=== PATIENT | male | born 1970 | race Caucasian/White ===

== ENCOUNTER → 2018-03-05 | Outpatient (CLI) | payer BC ==
[2018-03-05 10:56] LABS: Basophils # (A) 0.1 k/uL (0-0.2); Basophils % (A) 1 %; Eosinophils # (A) 0.4 k/uL (0-0.7); Eosinophils % (A) 4 %; HCT 42.4 % (39.0-53.0); HGB 14.9 gm/dL (13.0-17.5); Lymphocytes # (A) 2.2 k/uL (1.0-4.8); Lymphocytes % (A) 23 %; MCH 32.5 pg (25.0-35.0); MCHC 35.1 g/dL (31.0-37.0); MCV 92.7 fL (80.0-100.0); Mean Platelet Volume 7.5; Monocytes # (A) 0.4 k/uL (0-1.0); Monocytes % (A) 4 %; Neutrophils # (A) 6.7 k/uL (1.3-7.7); Neutrophils % (A) 68 %; Platelet Count 258 k/uL (150-450); RBC 4.58 m/uL (4.30-5.90); WBC 9.8 k/uL (3.8-10.6)
[2018-03-05 11:19] LABS: ALT 18 U/L (21-72); AST 21 U/L (17-59); Cholesterol 265 mg/dL (<200); Triglycerides 308 mg/dL (<150)
== END | disposition home or self-care (01) ==
LOC: LABWHC1 10:28
PROVIDERS: ATTEND Physician Assistant Medical
DX: Q82.8 Other specified congenital malformations of skin (principal)
CPT/HCPCS: 36415; 82465; 84450; 84460; 84478; 85025

== ENCOUNTER → 2025-02-09 | Outpatient (CLI) | payer BC ==
[2025-02-10 02:36] LABS: Basophils # (A) 0.04 X 10*3/uL (0.00-0.10); Basophils % (A) 0.6 %; Eosinophils # (A) 0.16 X 10*3/uL (0.04-0.35); Eosinophils % (A) 2.4 %; HGB 14.1 g/dL (13.0-17.0); Lymphocytes % (A) 36.8 %; MCH 33.7 pg (27.0-32.0); MCHC 33.6 g/dL (32.0-37.0); MCV 100.2 FL (80.0-97.0); Mean Platelet Volume 11.4 FL (9.5-12.2); Monocytes # (A) 0.48 X 10*3/uL (0.20-1.00); Monocytes % (A) 7.1 %; NRBC Per 100 WBC 0 X 10*3/uL (0.00-0.01); Neutrophils # (A) 3.59 X 10*3/uL (1.80-7.70); Neutrophils % (A) 52.7 %; Platelet Count 252 X 10*3/uL (140-440); RBC 4.19 X 10*6/uL (4.40-5.60)
[2025-02-10 02:48] LABS: BUN/Creat Ratio 4.36 Ratio (12.00-20.00); Blood Urea Nitrogen 4.8 mg/dL (9.0-27.0); Calcium 8.8 mg/dL (8.7-10.3); Carbon Dioxide 24.7 mmol/L (21.6-31.8); Chloride 109 mmol/L (96-109); Glucose 72 mg/dL (70-110); Potassium 3.6 mmol/L (3.5-5.5); Sodium 146 mmol/L (135-145)
== END | disposition home or self-care (01) ==
LOC: LABPAT 15:52
PROVIDERS: ATTEND Urology
DX: Z01.812 Encounter for preprocedural laboratory examination (principal); N52.9 Male erectile dysfunction, unspecified
CPT/HCPCS: 80048; 85025; 87086

== ENCOUNTER 2025-02-16 06:27 | Day surgery (SDC) | payer BC ==
--- NOTE | 2025-02-15 22:00 | P.GSHP ---
History of Present Illness H&P Date: 02/15/25 Chief Complaint: Erectile dysfunction The patient is a 54-year-old white male with a several year history of erectile dysfunction. He has failed treatment with Cialis, Viagra, vacuum erection device, and intracavernosal injection therapy. Remaining options include MUSE and an inflatable penile prosthesis. I have reviewed the pros and cons of each in detail with the patient and his . Patient has elected to undergo insertion of an inflatable penile prosthesis and comes for this reason. - Cardiovascular Cardiovascular: Reports high blood pressure - Genitourinary (Male) Genitourinary: Reports impotence Past Medical History Past Medical History: GERD/Reflux, Hyperlipidemia, Hypertension, Skin Disorder Additional Past Medical History / Comment(s): Darier's disease - rare, inherited skin disorder; fractured back several years ago, chronic back pain; E.D History of Any Multi-Drug Resistant Organisms: None Reported Past Surgical History: No Surgical Hx Reported Additional Past Anesthesia/Blood Transfusion Reaction / Comment(s): has never had surgery Smoking Status: Current every day smoker, Vaper Medications and Allergies Home Medications Medication Instructions Recorded Confirmed Type Acitretin [Soriatane] 25 mg PO HS 02/14/25 02/14/25 History Atorvastatin [Lipitor] 80 mg PO HS 02/14/25 02/14/25 History Cariprazine HCl [Vraylar] 6 mg PO HS 02/14/25 02/14/25 History Gabapentin 800 mg PO TID 02/14/25 02/14/25 History Losartan [Cozaar] 25 mg PO HS 02/14/25 02/14/25 History Omeprazole [PriLOSEC] 40 mg PO HS 02/14/25 02/14/25 History Venlafaxine HCl [Effexor XR] 150 mg PO HS 02/14/25 02/14/25 History oxyCODONE HCL/ACETAMINOPHEN 1 each PO HS PRN 02/14/25 02/14/25 History [Percocet 10-325 mg Tablet] Allergies Allergy/AdvReac Type Severity Reaction Status Date / Time No Known Allergies Allergy Verified 02/14/25 10:48 Surgical - Exam - General well developed, well nourished, no distress - Respiratory normal respiratory effort - Abdomen Abdomen: soft, non tender, no guarding, no rigid, no rebound - Genitourinary normal penis with no external lesions, testicles non-tender - Psychiatric oriented to time, oriented to person, oriented to place, speech is normal, memory intact Assessment and Plan (1) Male erectile dysfunction, unspecified Status: Acute Code(s): N52.9 - MALE ERECTILE DYSFUNCTION, UNSPECIFIED SNOMED Code(s): 979231576 Plan: The patient has elected to undergo insertion of an AMS 700 inflatable penile prosthesis. I have reviewed the procedure with him in detail. I discussed the prognosis and possible side-effects as well as the mechanics of the implant. I explained the possibility of a wound infection, particularly because of the presence of the foreign body in the penis. I discussed in detail the postoperative swelling and bruising which is anticipated. I explained that the implant does not give erectile qualities to the glans penis. The patient expressed an understanding with regard to the procedure, possible complications and outcome. Other risks include anesthesia, bleeding, erosion, and mechanical failure. He understands that infection and erosion would necessitate removal of the prosthesis.
[~2025-02-16 06:27] MED LIST: LIDOCAINE 1% (10MG/ML) FOR IV START INTRADERMA PRN; droPERidol 2.5 MG/ML VIAL IVP ONE
[2025-02-16 06:57] VITALS: RESP 16
[2025-02-16] MEDS: DEXAMETHASONE SOD PHOSPHATE 4 MG/ML 1 ML VIAL IV ONE (07:13)
[2025-02-16] MEDS: LACTATED RINGERS 1,000 ML IV SCH (07:13)
[2025-02-16] MEDS: ONDANSETRON 4 MG/2 ML VIAL IVP ONE (07:14)
[2025-02-16] MEDS: VANCOMYCIN 1,000 MG in SODIUM CHLORIDE 0.9% 250 ML IVPB PRN (07:16)
[2025-02-16] MEDS: LACTATED RINGERS 1,000 ML IV ONE (07:20)
[2025-02-16] MEDS ORDERED: NEOSTIGMINE 1 MG/ML 10 ML VIAL ONE (07:22)
[2025-02-16] MEDS ORDERED: LIDOCAINE 1% INJ 10MG/ML (20 ML MDV) ONE (07:22)
[2025-02-16] MEDS ORDERED: PROPOFOL 10 MG/ML 20 ML VIAL IV ONE (07:22)
[2025-02-16] MEDS ORDERED: ePHEDrine 50 MG/ML 1 ML VIAL ONE (07:22)
[2025-02-16] MEDS ORDERED: SUCCINYLCHOLINE CHLORIDE 200 MG/10 ML VIAL IV ONE (07:22)
[2025-02-16] MEDS ORDERED: fentaNYL (PF) 50 MCG/ML 2 ML AMP ONE (07:22)
[2025-02-16] MEDS ORDERED: MIDAZOLAM 2 MG/2 ML VIAL ONE (07:22)
[2025-02-16] MEDS ORDERED: PHENYLEPHRINE 10 MG/ML VIAL ONE (07:22)
[2025-02-16] MEDS ORDERED: ROCURONIUM 10 MG/ML (5 ML VIAL) IV ONE (07:22)
[2025-02-16] MEDS ORDERED: GLYCOPYRROLATE 0.2 MG/ML 2 ML VIAL ONE (07:22)
[2025-02-16] MEDS: GENTAMICIN 120 MG in SODIUM CHLORIDE 0.9% 100 ML IVPB PRN (07:57)
[2025-02-16] MEDS: GENTAMICIN 80 MG in SODIUM CHLORIDE 0.9% 500 ML 500 ML IRRIGATION ONE (08:11)
[2025-02-16 09:44] VITALS: TEMP 96.8
--- NOTE | 2025-02-16 09:53 | P.OP ---
Date of Procedure: 02/16/25 Preoperative Diagnosis: Male erectile dysfunction Postoperative Diagnosis: Same Procedure(s) Performed: Insertion of AMS 700 CX inflatable penile prosthesis Anesthesia: JAZMINE Surgeon: Blas Garcia Estimated Blood Loss (ml): 30 IV fluids (ml): 700 Pathology: none sent Condition: stable Disposition: PACU Indications for Procedure: The patient is a 54-year-old white male with a several year history of erectile dysfunction. He has failed treatment with Cialis, Viagra, vacuum erection device, and intracavernosal injection therapy. Remaining options include MUSE and an inflatable penile prosthesis. I have reviewed the pros and cons of each in detail with the patient and his . Patient has elected to undergo insertion of an inflatable penile prosthesis and comes for this reason. Operative Findings: Successful placement of IPP. Description of Procedure: The patient was taken to the operating room and placed in the supine position. The lower abdomen and external genitalia were prepped and draped sterilely. The scalpel was used to make an infrapubic midline skin incision. The Bovie electrocautery was used to incise the subcutaneous tissues and the linea alba in the midline. The linea alba was somewhat attenuated on the left side. Dissection was carried down to the corporal bodies bilaterally. Once they were exposed, 3-0 PDS stay sutures were placed through the tunica albuginea b ilaterally. The scalpel was then used to make the corporotomies bilaterally, making longitudinal incisions within each corporal body measuring approximately 2.5 cm in length. Metzenbaum scissors were used to establish a plane within the corporal bodies proximally and distally. The corporal bodies were then dilated successfully using Hegar dilators up to 13 mm. Each corporal body was then measured to be 19 cm in length. Both the fluid reservoir and the cylinders were prepped in the standard fashion to remove any air from them. Blunt dissection was utilized to develop the prevesical space, allowing the 65 cc spherical fluid reservoir to be placed within that space and the tubing brought out through a separate stab incision to the right of the midline incision. The reservoir was then filled with 65 cc of normal saline. The linea alba was then closed using 0 PDS suture in a running fashion. Next, 1 cm rear- tip extenders were connected to 18 cm cylinders, which were then placed within their respective corporal body using the Ronald needle and Prashanth insertion tool in the standard fashion. The cylinders were then inflated, and the cylinders noted to be nicely expanded without buckling. The cylinders were then deflated, and the corporotomies were both closed using 3-0 PDS suture in a running fashion. Next, blunt dissection was utilized to create a pouch within the right anterior hemiscrotum. The pump was placed within this pouch, and it was easy to palpate both the pump and the release button. The tubing from the pump was then secured to the tubing from the reservoir using the snap connector in the standard fashion. It should be noted that the prosthetic components were periodically irrigated with antibiotic solution throughout the procedure. The subcutaneous tissues were reapproximated over the prosthetic tubing using 3- 0 chromic suture in a running fashion. The skin was closed using sharonda. A sterile gauze dressing was applied over the incision, and covered with a Tegaderm dressing. All sponge and needle counts were correct. A 12 Serbian straight cath was used to drain the bladder. The return was clear. The patient tolerated the procedure well and was taken to the recovery in stable condition.
[2025-02-16] MEDS: HYDROmorphone 0.5 MG/0.5 ML SYRINGE IVP PRN (10:25)
[2025-02-16] MEDS: KETOROLAC 15 MG/ML 1 ML VIAL IVP STA (11:22)
[2025-02-16 11:49] VITALS: BP 124/76; PULSE 68
== END 2025-02-16 12:02 | disposition home or self-care (01) ==
LOC: OR 06:27
PROVIDERS: ATTEND Urology
DX: N52.9 Male erectile dysfunction, unspecified (principal); K21.9 Gastro-esophageal reflux disease without esophagitis; I10 Essential (primary) hypertension; E78.5 Hyperlipidemia, unspecified; F32.A Depression, unspecified; F41.9 Anxiety disorder, unspecified; F17.210 Nicotine dependence, cigarettes, uncomplicated; M54.50 Low back pain, unspecified; Z79.02 Long term (current) use of antithrombotics/antiplatelets; Z79.899 Other long term (current) drug therapy
CPT/HCPCS: 54405; C1813; J2250; J3370; J0330; J1580 ×2; J1100; J2710; J2405; J2003; J3010; J1885; J2704; J1171; J2371; J1596